=== PATIENT | female | born 1945 | race Caucasian/White ===

== ENCOUNTER 2017-06-30 09:44 | Inpatient (IN) ==
[2017-06-30] MEDS ORDERED: ONDANSETRON 4 MG/2 ML VIAL IV PRN (12:20)
[2017-06-30] MEDS ORDERED: ACETAMINOPHEN 325 MG TABLET PO PRN (12:20)
[2017-06-30] MEDS ORDERED: MAGNESIUM HYDROXIDE SUSP 30 ML UDCUP PO PRN (12:20)
[2017-06-30] MEDS ORDERED: PROPOFOL 200 MG/20 ML VIAL IV ONE (12:54)
[2017-06-30] MEDS ORDERED: LIDOCAINE 1% 5 ML VIAL ONE (12:54)
[2017-06-30] MEDS: SODIUM CHLORIDE 0.45% 1,000 ML IV SCH ×2 (13:50→22:01)
[2017-06-30 14:12] LABS: Basophils # 0.1 10*3/uL (0.0-0.2); Eosinophils # 0.3 10*3/uL (0.0-0.87); Eosinophils % 5.1 % (0.00-10.9); Hematocrit 31.9 VOL% (35.7-47.0); Hemoglobin 10.1 GM/DL (12.0-16.0); Immature Granulocytes % 0.6 %; Immature Granulocytes Absolute 0.03 #; Lymphocytes % 18.4 % (21.3-54.2); Mean Corpuscular HGB Conc 31.7 GM/DL (32-36); Mean Corpuscular Hemoglobin 26 PG (27-34); Mean Corpuscular Volume 82.6 FL (87-102); Mean Platelet Volume 9.1 FL (9.6-12.0); Monocytes # 0.4 10*3/uL (0.11-0.8); Monocytes % 7.8 % (1.7-12.7); Neutrophils # 3.5 10*3/uL (1.4-7.4); Neutrophils % 67.1 % (38.7-73.9); Platelet Count 335 T/CUMM (130-400); Red Blood Count 3.86 MC/CUMM (3.8-5.5); Red Cell Distribution Width 15.9 % (9.3-17.3); White Blood Count 5.3 T/CUMM (4-12)
[2017-06-30 14:44] LABS: Albumin 3.7 G/DL (3.4-5.0); Bilirubin,Total 1.1 MG/DL (0.2-1.0); Calcium 8.6 MG/DL (8.5-10.1); Total Protein 6.5 G/DL (6.4-8.3)
[2017-06-30 17:58] LABS: Hematocrit 30.5 VOL% (35.7-47.0); Hemoglobin 9.7 GM/DL (12.0-16.0)
[2017-06-30] MEDS: rOPINIRole 1 MG TABLET PO SCH (20:29)
[2017-06-30] MEDS: PANTOPRAZOLE 40 MG TABLET PO SCH (20:29)
[2017-06-30] MEDS: GABAPENTIN 300 MG CAPSULE PO SCH (20:29)
[2017-06-30] MEDS ORDERED: PANTOPRAZOLE 40 MG VIAL IV SCH (21:00)
[2017-07-01 05:28] LABS: Basophils % 0.8 % (0.0-0.8); Eosinophils # 0.5 10*3/uL (0.0-0.87); Eosinophils % 9.1 % (0.00-10.9); Hematocrit 28.3 VOL% (35.7-47.0); Hemoglobin 8.7 GM/DL (12.0-16.0); Lymphocytes # 1.2 10*3/uL (1.4-4.0); Lymphocytes % 24.8 % (21.3-54.2); Mean Corpuscular HGB Conc 30.7 GM/DL (32-36); Mean Corpuscular Hemoglobin 26 PG (27-34); Mean Corpuscular Volume 84.5 FL (87-102); Mean Platelet Volume 9.7 FL (9.6-12.0); Monocytes # 0.5 10*3/uL (0.11-0.8); Monocytes % 9.1 % (1.7-12.7); Neutrophils # 2.8 10*3/uL (1.4-7.4); Neutrophils % 56.2 % (38.7-73.9); Platelet Count 293 T/CUMM (130-400); Red Blood Count 3.35 MC/CUMM (3.8-5.5); Red Cell Distribution Width 16.1 % (9.3-17.3)
[2017-07-01 06:06] LABS: Bilirubin,Total 0.6 MG/DL (0.2-1.0); Osmolality,Calculated 286.8 MOS/KG (273-304); Potassium 4.1 MMOL/L (3.5-5.1); Total Protein 5.4 G/DL (6.4-8.3)
[2017-07-01 07:28] LABS: Hematocrit 29.3 VOL% (35.7-47.0); Hemoglobin 9.2 GM/DL (12.0-16.0)
[2017-07-01] MEDS ORDERED: hydroCHLOROthiazide 25 MG TABLET PO SCH (09:00)
[2017-07-01] MEDS ORDERED: amLODIPine 5 MG TABLET PO SCH (09:00)
[2017-07-01] MEDS ORDERED: LOSARTAN 50 MG TABLET PO SCH (09:00)
[2017-07-01] MEDS ORDERED: ATORVASTATIN 10 MG TABLET PO SCH (09:00)
[2017-07-01] MEDS: PANTOPRAZOLE 40 MG TABLET PO SCH ×2 (09:27→21:46)
[2017-07-01] MEDS: SODIUM CHLORIDE 0.45% 1,000 ML IV SCH ×2 (09:29→16:08)
[2017-07-01 18:52] LABS: Hematocrit 31.5 VOL% (35.7-47.0); Hemoglobin 9.7 GM/DL (12.0-16.0)
[2017-07-01] MEDS: GABAPENTIN 300 MG CAPSULE PO SCH (21:45)
[2017-07-01] MEDS: rOPINIRole 1 MG TABLET PO SCH (21:46)
[2017-07-02 05:09] LABS: Basophils # 0.1 10*3/uL (0.0-0.2); Basophils % 1.1 % (0.0-0.8); Eosinophils # 0.6 10*3/uL (0.0-0.87); Hematocrit 28.9 VOL% (35.7-47.0); Hemoglobin 8.9 GM/DL (12.0-16.0); Immature Granulocytes % 0.4 %; Immature Granulocytes Absolute 0.02 #; Lymphocytes # 1.3 10*3/uL (1.4-4.0); Lymphocytes % 23.6 % (21.3-54.2); Mean Corpuscular HGB Conc 30.8 GM/DL (32-36); Mean Corpuscular Hemoglobin 26 PG (27-34); Mean Corpuscular Volume 83.5 FL (87-102); Mean Platelet Volume 9.9 FL (9.6-12.0); Monocytes # 0.6 10*3/uL (0.11-0.8); Monocytes % 10.2 % (1.7-12.7); Neutrophils % 54.7 % (38.7-73.9); Platelet Count 321 T/CUMM (130-400); Red Blood Count 3.46 MC/CUMM (3.8-5.5); Red Cell Distribution Width 17.2 % (9.3-17.3); White Blood Count 5.5 T/CUMM (4-12)
[2017-07-02 07:04] VITALS: BP 130/70
== END 2017-07-02 09:40 | disposition home or self-care (01) | DRG 378 ==
LOC: N.5E 11:37
PROVIDERS: ADMIT Internal Medicine Gastroenterology; ATTEND Internal Medicine Gastroenterology

== ENCOUNTER 2021-10-08 11:39 | Observation (INO) ==
[2021-10-08 12:09] LABS: Basophils # 0.1 10*3/uL (0.0-0.2); Eosinophils # 0.1 10*3/uL (0.0-0.87); Eosinophils % 1.8 % (0.00-10.9); Hematocrit 41.8 VOL% (35.7-47.0); Hemoglobin 13.3 GM/DL (12.0-16.0); Immature Granulocytes % 0.2 %; Immature Granulocytes Absolute 0.01 #; Lymphocytes # 1.4 10*3/uL (1.4-4.0); Lymphocytes % 27.6 % (21.3-54.2); Mean Corpuscular HGB Conc 31.8 GM/DL (32-36); Mean Corpuscular Volume 95.7 FL (87-102); Mean Platelet Volume 8.9 FL (9.6-12.0); Monocytes # 0.4 10*3/uL (0.11-0.8); Monocytes % 8.2 % (1.7-12.7); Neutrophils % 61.2 % (38.7-73.9); Platelet Count 249 T/CUMM (130-400); Red Blood Count 4.37 MC/CUMM (3.8-5.5); Red Cell Distribution Width 13.4 % (9.3-17.3); White Blood Count 5.1 T/CUMM (4-12)
[2021-10-08 12:19] LABS: INR 0.9; PT Patient Result 10.4 SECS (10.1-12.1); Partial Thromboplastin Time 34.8 SECS (23.7-32.9)
[2021-10-08] MEDS ORDERED: NITROGLYCERIN SL 0.4 MG TABLET SL PRN (12:23)
[2021-10-08 12:30] LABS: Alanine Aminotransferase 24 U/L (13-56); Albumin 4.2 G/DL (3.4-5.0); Alkaline Phosphatase 74 U/L (45-117); Aspartate Amino Transferase 25 U/L (0-37); Blood Urea Nitrogen 10 MG/DL (7-18); Carbon Dioxide 26 MMOL/L (21-32); Chloride 107 MMOL/L (98-107); Glucose 101 MG/DL (74-106); Potassium 3.5 MMOL/L (3.5-5.1); Sodium 143 MMOL/L (136-145); Total Protein 7.6 G/DL (6.4-8.2)
[2021-10-08] MEDS ORDERED: NITROGLYCERIN 2% OINT 1 INCH/GM PACK TOP STA (13:25)
[2021-10-08] MEDS ORDERED: MORPHINE 2 MG/1 ML SYRINGE IV STA (13:25)
[2021-10-08] MEDS ORDERED: ASPIRIN 325 MG TABLET PO STA (13:25)
[2021-10-08] MEDS ORDERED: ONDANSETRON 4 MG/2 ML VIAL IV STA (13:26)
[2021-10-08] MEDS ORDERED: ACETAMINOPHEN 325 MG TABLET PO PRN (13:38)
[2021-10-08] MEDS ORDERED: ONDANSETRON 4 MG/2 ML VIAL IV PRN (13:38)
[2021-10-08] MEDS ORDERED: MORPHINE 2 MG/1 ML SYRINGE IV PRN (13:38)
[2021-10-08] MEDS ORDERED: rOPINIRole 1 MG TABLET PO SCH (21:00)
[2021-10-08] MEDS ORDERED: GABAPENTIN 300 MG CAPSULE PO SCH (21:00)
[2021-10-08] MEDS: DOCUSATE SODIUM 100 MG CAPSULE PO SCH (21:01)
[2021-10-09] MEDS ORDERED: VALSARTAN/HCTZ 80-12.5 MG TABLET PO SCH (09:00)
[2021-10-09] MEDS ORDERED: PANTOPRAZOLE 40 MG TABLET PO SCH (09:00)
[2021-10-09] MEDS ORDERED: VALSARTAN 80 MG TABLET PO SCH (09:00)
[2021-10-09] MEDS ORDERED: ASPIRIN EC 81 MG TABLET PO SCH (09:00)
[2021-10-09] MEDS: DOCUSATE SODIUM 100 MG CAPSULE PO SCH (09:36)
[2021-10-09 12:28] VITALS: BP 166/71
[2021-10-09 14:03] LABS: Free T4 (Free Thyroxine) 1.13 NG/DL (0.76-1.46); Thyroid Stimulating Hormone 0.929 uIU/ml (0.358-3.74)
[2021-10-09] MEDS ORDERED: ROSUVASTATIN 20 MG TABLET PO SCH (21:00)
== END 2021-10-09 13:25 | disposition home or self-care (01) ==
LOC: N.ED 11:39 → N.EDINP 11:39 → N.TELES 16:05
PROVIDERS: ADMIT Family Medicine; ATTEND Family Medicine